=== PATIENT | female | born 1980 | race Native Hawaiian/Other Pacific Islander ===

== ENCOUNTER 2022-06-23 13:24 | Emergency (ER) | payer BC, OTHER ==
[~2022-06-23] VITALS: Ht 152.4 cm; Wt 50.8 kg
[2022-06-23] MEDS ORDERED: ERYT3.5O24 EACHEYE (13:49)
[2022-06-23 14:24] VITALS: BP 121/65
--- NOTE | 2022-06-23 14:24 | NUR ---
PT SEEN AND EVALUATED BY DR PRICE.
== END 2022-06-23 14:24 | disposition home or self-care (01) ==
LOC: ER 13:24
DX: H01.004 Unspecified blepharitis left upper eyelid (principal); H01.001 Unspecified blepharitis right upper eyelid; Z79.2 Long term (current) use of antibiotics
CPT/HCPCS: A4663